=== PATIENT | female | born 1985 | race African-American/Black ===

== ENCOUNTER 2023-12-31 10:37 | Emergency (ER) | payer MEDICAID ==
[~2023-12-31] VITALS: Ht 165.1 cm; Wt 69.8 kg
[2023-12-31 11:47] VITALS: BP 121/76
[2023-12-31 11:48] VITALS: PULSE 88; RESP 18; O2SAT 99
[2023-12-31] MEDS ORDERED: AZIT-185 PO (12:22)
[2023-12-31] MEDS ORDERED: SUMA50TA2 PO (12:22)
[2023-12-31] MEDS ORDERED: PROM1SOL4 PO (12:22)
[2023-12-31 12:26] VITALS: TEMP 97.8
[2023-12-31] MEDS: ACETAMINOPHEN 500 MG TAB PO ONE (12:26)
== END 2023-12-31 12:37 | disposition home or self-care (01) ==
LOC: ER 10:37
DX: J06.9 Acute upper respiratory infection, unspecified (principal); J02.9 Acute pharyngitis, unspecified; G43.909 Migraine, unspecified, not intractable, without status migrainosus
CPT/HCPCS: 71045

== ENCOUNTER 2024-01-09 12:47 | Emergency (ER) | payer MEDICAID ==
[~2024-01-09] VITALS: Ht 165.1 cm; Wt 70.4 kg
[~2024-01-09 12:47] MED LIST: AZIT-185 PO; PROM1SOL4 PO; SUMA50TA2 PO
[2024-01-09 14:33] VITALS: BP 113/76; PULSE 99; RESP 18; TEMP 97.7; O2SAT 99
[2024-01-09] MEDS: diphenhdrAMINE HCL 50 MG/1 ML VL IV ONE (15:31)
[2024-01-09] MEDS: PROCHLORPERAZINE EDISYLATE 5 MG/ML 2ML VIAL IV ONE (15:32)
[2024-01-09] MEDS: KETOROLAC TROMETH 30 MG/ML 1ML VIAL IV ONE (15:32)
[2024-01-09] MEDS: DexAMETHasone SOD PHOS 10MG/1ML VIAL INJ IV ONE (16:36)
[2024-01-09] MEDS ORDERED: RIBO400T OR (16:55)
[2024-01-09] MEDS ORDERED: MAGN400T40 PO (16:55)
== END 2024-01-09 16:55 | disposition home or self-care (01) ==
LOC: ER 12:47
DX: G43.909 Migraine, unspecified, not intractable, without status migrainosus (principal)
CPT/HCPCS: 96374; 99283; J1100; J1885